=== PATIENT | female | born 1945 | race Caucasian/White ===

== ENCOUNTER 2023-04-17 06:38 | Day surgery (SDC) | payer MEDICARE, BC, SELFPAY | END 2023-04-17 15:34 | disposition home or self-care (01) | LOC: SDS 06:38 | PROVIDERS: ATTENDING PHYSICIAN Internal Medicine Gastroenterology | DX: K86.89 Other specified diseases of pancreas (principal); K83.8 Other specified diseases of biliary tract; K57.10 Diverticulosis of small intestine without perforation or abscess without bleeding | CPT/HCPCS: 43237 ==